=== PATIENT | female | born 1990 | race Caucasian/White ===

== ENCOUNTER 2020-01-25 17:45 | Emergency (ER) | payer OTHER, SELFPAY ==
[2020-01-25 17:50] VITALS: BP 125/84; PULSE 84; RESP 18; TEMP 36.6; O2SAT 98
--- NOTE | 2020-01-25 18:42 | ED.URI ---
HPI - URI/Sore Throat General Chief Complaint: Upper Respiratory Infection Stated Complaint: sore throat tired congestion Time Seen by Provider: 01/25/20 18:43 Source: patient Mode of arrival: ambulatory Limitations: no limitations History of Present Illness HPI Narrative: Leah Mahoney is a 29 yo female with no PMH who came with a sour throat and sniffling that started today.No reported fever. Related Data Allergies Allergy/AdvReac Type Severity Reaction Status Date / Time No Known Allergies Allergy Unknown Verified 01/25/20 18:08 Review of Systems Review of Systems: Narrative: CONSTITUTIONAL: Denies fever, chills, sweats. EYES: Denies visual changes, redness, discharge. ENT:has rhinorrhea, congestion, has sore throat, otalgia. CARDIOVASCULAR: Denies chest pain, palpitations, edema. RESPIRATORY: Denies dyspnea, wheezing, cough GASTROINTESTINAL: Denies abdominal pain, nausea, vomiting, diarrhea. GENITOURINARY: Denies dysuria, hematuria, abnormal discharge SKIN: Denies rash or itching. NEUROLOGIC: Denies numbness, or focal weakness. PSYCHIATRIC: Denies anxiety or depression. [facility] Past Medical History Medical History No acute medical problems Family History Family History Other No acute medical problems Social History Social History (Updated 01/25/20 @ 18:47 by Mayra Billings CNP) Smoking status: Current every day smoker Alcohol intake: current Comments At time of signature, I agree with nursing past medical, surgical, social and family history. There is no relevant family history pertinent to the presenting complaint. Exam Narrative: Exam Narrative: GENERAL: This is a well-nourished, well-developed patient, in mild distress. HEAD: normocephalic, atraumatic. EYES: Sclera clear/white. Vision is grossly intact. EARS: External ears normal, auditory canals clear and without drainage, TMs normal without perforation. Fluid behind right TM hearing grossly intact. NOSE: External nose normal without nasal discharge, nares without redness, no rhinorrhea. THROAT: Mucous membranes moist, posterior pharynx mild erythema CARDIOVASCULAR: regular rate and rhythm without murmurs, gallops, or rubs. RESPIRATORY: Clear to auscultation. Breath sounds equal bilaterally. No wheezes, rales, or rhonchi. GASTROINTESTINAL: Abdomen soft, non-tender, SKIN: warm, intact with no suspicious lesions or rash, good texture and turgor. NEURO: awake, alert, and oriented to person, place and time. There were no obvious focal neurologic abnormalities. Steady gait EXTREMITIES: Normal range of motion. BACK: Nontender without deformity Course Course Emergency Course: Came to express care for sore throat and congestion Strep test is positive flu test is negative started on penicillin V 500 mg twice daily x10 days Vital Signs Vital signs: Vital Signs Temperature 97.8 F 01/25/20 17:50 Pulse Rate 84 01/25/20 17:50 Respiratory Rate 18 01/25/20 17:50 Blood Pressure 125/84 01/25/20 17:50 Pulse Oximetry 98 01/25/20 17:50 Temperature 97.8 F 01/25/20 17:50 Pulse Rate 84 01/25/20 17:50 Respiratory Rate 18 01/25/20 17:50 Blood Pressure 125/84 01/25/20 17:50 Pulse Oximetry 98 01/25/20 17:50 MDM - URI/Sore Throat Differential Diagnosis Differential diagnosis: Likely upper respiratory infection, pharyngitis and other Lab Data Labs: Influenza A Screen Negative Reference Range: Negative Influenza A Screen Negative Reference Range: Negative Influenza B Screen Negative Reference Range: Negative Influenza B Screen Negative Reference Range: Negative Str
== END 2020-01-25 19:02 | disposition home or self-care (01) ==
PROVIDERS: Emergency Provider Nurse Practitioner; PCP Nurse Practitioner Family
DX: J02.0 Streptococcal pharyngitis (principal); F17.200 Nicotine dependence, unspecified, uncomplicated
CPT/HCPCS: 87804; 87880; 99213; G0463

== ENCOUNTER 2020-09-07 09:51 | Emergency (ER) | payer OTHER, SELFPAY ==
[2020-09-07 09:56] VITALS: BP 126/89; PULSE 90; RESP 16; TEMP 36.6; O2SAT 99
--- NOTE | 2020-09-07 10:29 | ED.FEMALEGU ---
HPI - Female Genitourinary General Chief complaint: Urogenital-Female Stated complaint: right side pain slight fever Time Seen by Provider: 09/07/20 10:29 Source: patient and RN notes reviewed Mode of arrival: ambulatory Limitations: no limitations History of Present Illness HPI Narrative: 30-year-old female who presents to [facility] with complaints of 3-day duration of right flank pain which radiates to the right lower abdomen for the past 3 days. Patient reports some frequency of urination denies any burning with urination or any suprapubic pain or any visible hematuria. Patient denies any fevers, chills or sweats, reports some nausea, reports no vomiting or diarrhea. Patient states that she has been taking Tylenol for her discomfort. Reports history of pyelonephritis 3 years ago requiring hospital admission. Patient denies any vaginal discharge or itching denies any concern for STD exposure. MD elicited complaint: flank pain (Right) Pertinent past history: pyelonephritis Onset (ago): day(s) (3) Location of symptoms: flank (right) Severity: moderate Female Urogenital Radiation: LRQ and R Flank Severity scale (1-10): 5 Quality of pain: aching Consistency: constant Vaginal discharge: none Vaginal bleeding: none Urinary symptoms: Frequency Associated symptoms: nausea Treatment prior to arrival: acetaminophen Sexual activity: Yes Patient : No Date of Last Menstrual Period: 08/05/20 Related Data Allergies Allergy/AdvReac Type Severity Reaction Status Date / Time No Known Allergies Allergy Unknown Verified 09/07/20 10:05 Review of Systems Review of Systems: Narrative: CONSTITUTIONAL: Denies fever, chills, or sweats. EYES: Denies visual changes, redness, or discharge. ENT: Denies rhinorrhea, congestion, sore throat, or otalgia. CARDIOVASCULAR: Denies chest pain, palpitations, or edema. RESPIRATORY: Denies cough or dyspnea. GASTROINTESTINAL:Positive for right flank pain radiating to right abdomen, nausea, no vomiting, or diarrhea. GENITOURINARY: Denies dysuria or hematuria reports urinary frequency. SKIN: Denies rash or itching. MUSCULOSKELETAL:Positive right flank area back pain,no joint pain, or myalgia. NEUROLOGIC: Denies headache, numbness, or weakness. PSYCHIATRIC: Positive history of anxiety or depression. All systems reviewed & are unremarkable except as noted in HPI and below PMFSH Past Medical History Medical History (Updated 09/08/20 @ 11:36 by Rabia Ulloa NP) Anxiety Fracture of left hand Pyelonephritis Surgical History Surgical History (Updated 09/08/20 @ 11:31 by Rabia Ulloa NP) No history of previous surgery Family History Family History (Updated 09/07/20 @ 10:42 by Rabia Ulloa NP) Grandparent Cerebrovascular accident Social History Social History (Updated 09/07/20 @ 10:42 by Rabia Ulloa NP) Smoking status: Current some day smoker Tobacco type: e-cigarettes/vaping Alcohol intake: current Substance use: never Living arrangements: with family Gender identity (if verbalized by the patient): Female Comments At time of signature, agree with nursing past medical, surgical, social and family history. There is no relevant family history pertinent to the presenting complaint Exam Narrative: Exam Narrative: GENERAL: Well-appearing, well-nourished, and in no acute distress. HEAD: Normocephalic, atraumatic. EYES: PERRLA and EOMI. ENT: Nares clear, no rhinorrhea or epistaxis. Mucous membranes moist. TM's normal with good light reflex,throat pink with no lesions or exudates no tonsil enlargement NECK: Supple.no lymphadenopathy CHEST: Clear to auscultation. No respiratory distress.SAO2 99% on room air HEART: Regular rate and rhythm. No murmur heard. Normal peripheral pulses. ABDOMEN: Soft, tender right abdomen negative McBurney point tenderness, nondistended, normal active bowel sounds. some nausea with no emesis or diarrhea EXTREMITIES: Normal range of motion. N
== END 2020-09-07 10:50 | disposition home or self-care (01) ==
PROVIDERS: Emergency Provider Registered Nurse; PCP Nurse Practitioner Family
DX: N39.0 Urinary tract infection, site not specified (principal); F17.200 Nicotine dependence, unspecified, uncomplicated
CPT/HCPCS: 81003; 87077; 87086; 87088; 87186; 99213; G0463

== ENCOUNTER 2022-07-20 17:10 | Emergency (ER) | payer OTHER, SELFPAY ==
--- NOTE | 2022-07-20 17:12 | ED.URI ---
HPI - URI/Sore Throat General Chief Complaint: Upper Respiratory Infection Stated Complaint: voice / cough Time Seen by Provider: 07/20/22 17:58 Source: patient and RN notes reviewed Mode of arrival: ambulatory Limitations: no limitations History of Present Illness HPI Narrative: 32-year-old female presents with concern for hoarse voice. She reports mild cough. Denies sore throat, nasal congestion, rhinorrhea, shortness of breath. She denies fever, aches, chills, sweats. She works as a judicial administrative assistant. MD elicited complaint: cough and other (hoarse voice) Related Data Allergies Allergy/AdvReac Type Severity Reaction Status Date / Time No Known Allergies Allergy Unknown Verified 07/20/22 17:19 Review of Systems Review of Systems: CONSTITUTIONAL: Denies malaise, chills, sweats, or fever. EYES: Denies visual changes, redness, or discharge. ENT: Reports rhinorrhea, congestion, sinus pain, otalgia and sore throat. Reports hoarse voice CARDIOVASCULAR: Denies chest pain, palpitations, or edema. RESPIRATORY: Reports occasional cough. Denies dyspnea. GASTROINTESTINAL: Denies abdominal pain, nausea, vomiting, diarrhea SKIN: Denies rash or itching. MUSCULOSKELETAL: Denies myalgia. NEUROLOGIC: Denies headache. All systems reviewed & are unremarkable except as noted in HPI and below PMFSH Past Medical History Medical History (Updated 07/20/22 @ 18:16 by Divya Green NP) Anxiety Fracture of left hand Pyelonephritis Surgical History Surgical History (Updated 09/08/20 @ 11:31 by Rabia Ulloa NP) No history of previous surgery Family History Family History (Updated 09/07/20 @ 10:42 by Rabia Ulloa NP) Grandparent Cerebrovascular accident Social History Social History (Updated 09/07/20 @ 10:42 by Rabia Ulloa NP) Smoking status: Current some day smoker Tobacco type: e-cigarettes/vaping Alcohol intake: current Substance use: never Living arrangements: with family Gender identity (if verbalized by the patient): Female Comments At time of signature, agree with nursing past medical, surgical, social and family history. There is no relevant family history pertinent to the presenting complaint Exam Narrative: GENERAL: Well-appearing, well-nourished, and in no acute distress. HEAD: Normocephalic EYES: PERRLA, conjunctivae clear ENT: Nares clear. Mucous membranes moist. TM pearly chase with sharp light reflex bilaterally; no tragal tenderness. Oropharynx not erythematous without lesions. Tonsils not enlarged and without exudate, no drooling, no trismus, uvula midline. hoarse voice noted NECK: Supple. No lymphadenopathy CHEST: Clear to auscultation, breath sounds equal. No wheezing, rhonchi, rales, or stridor. No respiratory distress, speaks in full sentences. HEART: Regular rate and rhythm. No murmur heard. SKIN: Warm, dry, no rash. NEURO: Alert and oriented x3. PSYCH: Normal mood and affect Course Course Emergency Course: Patient is aware of diagnosis, understands and agrees to treatment plan. Anticipatory guidance given. Patient agrees to follow-up as directed and is aware of reasons to seek care at the emergency department. Portions of this record may have been created with voice recognition software Level of Care: Express Care Visit Vital Signs Vital signs: Reviewed. MDM - URI/Sore Throat MDM Narrative Medical decision making narrative: Differential diagnosis considered: [place] virus, strep pharyngitis, allergic rhinitis, upper respiratory tract infection, sinusitis, rhinosinusitis, nasopharyngitis. viral pharyngitis, otitis media, otitis externa, pneumonia, bronchitis, viral cough syndrome, viral syndrome, and influenza. Exam findings show no acute concerns or changes; patient is non-toxic appearing and is in no distress. Patient is appropriate for outpatient treatment and follow-up. Lab Data Attestation: I reviewed the patient's lab results. Critical Care Time Critic
[2022-07-20 17:15] VITALS: BP 131/79; PULSE 79; RESP 18; TEMP 36.6; O2SAT 98
== END 2022-07-20 18:28 | disposition home or self-care (01) ==
PROVIDERS: Emergency Provider Nurse Practitioner
DX: J02.0 Streptococcal pharyngitis (principal)
CPT/HCPCS: 87880; 99213; G0463

== ENCOUNTER 2022-08-17 09:21 | Emergency (ER) | payer OTHER, SELFPAY ==
[2022-08-17 09:25] VITALS: BP 137/94; PULSE 74; RESP 20; TEMP 36.8; O2SAT 100
--- NOTE | 2022-08-17 09:31 | ED.URI ---
HPI - URI/Sore Throat General Chief Complaint: Upper Respiratory Infection Stated Complaint: sore throat Time Seen by Provider: 08/17/22 09:31 Source: patient Mode of arrival: ambulatory Limitations: no limitations History of Present Illness HPI Narrative: 32-year-old female presents with complaint of sore throat, fatigue, fever for 3 days. Afebrile at [facility]. Denies nausea vomiting diarrhea. Patient last diagnosed with strep throat July 20. All systems reviewed and negative except as noted above. Related Data Allergies Allergy/AdvReac Type Severity Reaction Status Date / Time No Known Allergies Allergy Unknown Verified 08/17/22 09:38 Review of Systems Review of Systems: CONSTITUTIONAL: Denies fever and fatigue. Denies chills, or sweats. EYES: Denies visual changes, redness, or discharge. ENT: Denies rhinorrhea, congestion, or otalgia. Reports sore throat fluid CARDIOVASCULAR: Denies chest pain, palpitations, or edema. RESPIRATORY: Denies cough or dyspnea. GASTROINTESTINAL: Denies abdominal pain, nausea, vomiting, or diarrhea. GENITOURINARY: Denies dysuria or hematuria. SKIN: Denies rash or itching. MUSCULOSKELETAL: Denies back pain, joint pain, or myalgia. NEUROLOGIC: Denies headache, numbness, or weakness. PSYCHIATRIC: Denies anxiety or depression. All other systems reviewed are negative, except as documented in HPI. PMFSH Past Medical History Medical History (Updated 08/17/22 @ 09:44 by Brook Grey NP) Anxiety Fracture of left hand Pyelonephritis Surgical History Surgical History (Updated 09/08/20 @ 11:31 by Rabia Ulloa NP) No history of previous surgery Family History Family History (Updated 09/07/20 @ 10:42 by Rabia Ulloa NP) Grandparent Cerebrovascular accident Social History Social History (Updated 09/07/20 @ 10:42 by Rabia Ulloa NP) Smoking status: Current some day smoker Tobacco type: e-cigarettes/vaping Alcohol intake: current Substance use: never Living arrangements: with family Gender identity (if verbalized by the patient): Female Comments At time of signature, agree with nursing past medical, surgical, social and family history. There is no relevant family history pertinent to the presenting complaint. Exam Narrative: GENERAL: This is a well-nourished, well-developed patient, in no apparent distress. HEAD: normocephalic, atraumatic. EYES: PERRL. Sclera clear/white. Vision is grossly intact. EARS: External ears normal, auditory canals clear and without drainage, TMs normal without perforation. Hearing grossly intact. NOSE: External nose normal with no obvious nasal discharge, nares without redness, no rhinorrhea. THROAT: Mucous membranes moist, erythema posterior pharynx, tonsils 1+ bilaterally without exudates. NECK: tender bilaterally anterior cervical lymphadenopathy. No masses or thyromegaly. CARDIOVASCULAR: Regular rate and rhythm without murmurs, gallops, or rubs. RESPIRATORY: Clear to auscultation. Breath sounds equal bilaterally. No wheezes, rales, or rhonchi. SKIN: warm, Dry, intact with no suspicious lesions or rash, good texture and turgor. NEURO: awake, alert, and oriented to person, place and time. There were no obvious focal neurologic abnormalities. EXTREMITIES: No joint tenderness, effusion, or edema noted. Course Course Level of Care: Express Care Visit Vital Signs Vital signs: Vital Signs Temperature 36.8 C 08/17/22 09:25 Pulse Rate 74 08/17/22 09:25 Respiratory Rate 20 08/17/22 09:25 Blood Pressure 137/94 H 08/17/22 09:25 Pulse Oximetry 100 08/17/22 09:25 Oxygen Delivery Room Air 08/17/22 09:25 Temperature 36.8 C 08/17/22 09:25 Pulse Rate 74 08/17/22 09:25 Respiratory Rate 20 08/17/22 09:25 Blood Pressure 137/94 H 08/17/22 09:25 Pulse Oximetry 100 08/17/22 09:25 Oxygen Delivery Room Air 08/17/22 09:25 Reviewed MDM - URI/Sore Throat MDM Narrat
== END 2022-08-17 09:45 | disposition home or self-care (01) ==
PROVIDERS: Emergency Provider Nurse Practitioner Family
DX: J02.0 Streptococcal pharyngitis (principal); F17.290 Nicotine dependence, other tobacco product, uncomplicated
CPT/HCPCS: 87880; 99213; G0463

== ENCOUNTER 2023-04-14 13:28 | Emergency (ER) | payer SELFPAY ==
[2023-04-14 13:41] VITALS: BP 101/64; PULSE 96; RESP 16; TEMP 37.7; O2SAT 100
--- NOTE | 2023-04-14 14:01 | ED.GENADULT ---
HPI - General Adult General Chief complaint: Unspecified Stated complaint: feet/fingertips numb Time Seen by Provider: 04/14/23 14:01 Source: patient Mode of arrival: ambulatory Limitations: no limitations History of Present Illness HPI narrative: 32 yo F presents with c/o numbness/tingling to bilateral hands, feet and around ABD for 5 days. Was seen at [facility] and [facility] and states they didn't really help me or tell me what to do . Pt did test positive for flu B and states thats not what is causing this . Pt is pale and tearful. C/o really bad back pain to mid and low back. Denies injury. No urinary symptoms. having normal BMs. Pt walking off balance and bracing wall when she walks. Denies headache and dizziness. Drove herself to express care. Was seen by chiropractor yesterday. States popped necK but didn't help . pt unable to see PCP until April. All systems reviewed and negative except as noted above. Related Data Allergies Allergy/AdvReac Type Severity Reaction Status Date / Time No Known Allergies Allergy Unknown Verified 08/17/22 09:38 Review of Systems Review of Systems: CONSTITUTIONAL: Denies fever, chills, or sweats. EYES: Denies visual changes, redness, or discharge. ENT: Denies rhinorrhea, congestion, sore throat, or otalgia. CARDIOVASCULAR: Denies chest pain, palpitations, or edema. RESPIRATORY: Denies cough or dyspnea. GASTROINTESTINAL: Denies abdominal pain, nausea, vomiting, or diarrhea. GENITOURINARY: Denies dysuria or hematuria. SKIN: Denies rash or itching. MUSCULOSKELETAL: Denies back pain, joint pain, or myalgia. NEUROLOGIC: Denies headache. Reports numbness and tingling to bilateral hands, feet and around abdomen. Denies weakness. PSYCHIATRIC: Denies anxiety or depression. All other systems reviewed are negative, except as documented in HPI. [facility] Past Medical History Medical History (Updated 04/14/23 @ 14:42 by Brook Grey NP) Anxiety Fracture of left hand Pyelonephritis Surgical History Surgical History (Updated 09/08/20 @ 11:31 by Rabia Ulloa NP) No history of previous surgery Family History Family History (Updated 09/07/20 @ 10:42 by Rabia Ulloa NP) Grandparent Cerebrovascular accident Social History Social History (Updated 09/07/20 @ 10:42 by Rabia Ulloa NP) Smoking status: Current some day smoker Tobacco type: e-cigarettes/vaping Alcohol intake: current Substance use: never Living arrangements: with family Gender identity (if verbalized by the patient): Female Comments At time of signature, agree with nursing past medical, surgical, social and family history. There is no relevant family history pertinent to the presenting complaint. Exam Narrative: GENERAL: Patient is pale, in mild pain distress and tearful. HEAD: normocephalic, atraumatic. EYES: PERRL. Sclera clear/white. Vision is grossly intact. EARS: External ears normal, auditory canals clear and without drainage, TMs normal without perforation. Hearing grossly intact. NOSE: External nose normal with no obvious nasal discharge, nares without redness, no rhinorrhea. THROAT: Mucous membranes moist, posterior pharynx clear. NECK: Neck supple, non-tender without lymphadenopathy, masses or thyromegaly. CARDIOVASCULAR: Regular rate and rhythm without murmurs, gallops, or rubs. RESPIRATORY: Clear to auscultation. Breath sounds equal bilaterally. No wheezes, rales, or rhonchi. SKIN: warm, Dry, intact with no suspicious lesions or rash, good texture and turgor. NEURO: awake, alert, and oriented to person, place and time. There were no obvious focal neurologic abnormalities. EXTREMITIES: No joint tenderness, effusion, or edema noted. Upper and lower bilateral extremity strength 5/5. BACK: Generalized tenderness to thoracic and lumbar aspects with no midline tenderness. No deformity noted. Course Course Level of Care: Express Care Visit Vital Signs
--- NOTE | 2023-04-14 15:10 | PC.NURSE ---
NO UC ORDERED PER PROVIDER
== END 2023-04-14 14:41 | disposition short-term general hospital (02) ==
PROVIDERS: Emergency Provider Nurse Practitioner Family; PCP Nurse Practitioner Family
DX: R20.2 Paresthesia of skin (principal); M54.6 Pain in thoracic spine; M54.50 Low back pain, unspecified; F17.290 Nicotine dependence, other tobacco product, uncomplicated
CPT/HCPCS: 81003; 99212; G0463

== ENCOUNTER 2023-04-17 12:52 | Emergency (ER) | payer SELFPAY ==
--- NOTE | ~2023-04-17 | CT_ITS ---
EXAMINATION: CT thoracic lumbar wo con DATE: 04/17/2023 17:43 INDICATION: upper back pain, paresthesias . TECHNIQUE: Computed tomography (CT) of the thoracic and lumbar spine was performed without intravenou s contrast. The dose-length product was 1292.15 mGy-cm. COMPARISON: None FINDINGS: THORACIC SPINE: Vertebral body alignment intact. Mild spinal asymmetry. Vertebral body heights preserved. No disc spa ce narrowing. No traumatic malalignment or fracture. No severe central canal or neural foraminal narr owing. Visualized lung parenchyma is clear. 6 mm right thyroid lobe hypodensity which requires no add itional evaluation at this time. Cluster of multiple centrilobular and groundglass nodules measuring up to 6 mm in the right upper lobe. LUMBAR SPINE: 5 nonrib-bearing lumbar-type vertebral bodies. Pedicles intact. Normal vertebral body alignment. Top Collar Baster brody bilateral pars defects at L4. Small limbus vertebra at L5. Mild degenerative disc disease at L3-4 through L5-S1. 2 mm disc extrusion at L4-5. Disc spaces maintained. Normal facets and posterior habematolel ents. No severe central canal or neural foraminal narrowing. Partially visualized IUD. Punctate nonob structing bilateral renal calcifications. Right renal scarring. IMPRESSION: Likely infectious/inflammatory cluster of pulmonary nodules in the right upper lobe. Correlate with r espiratory symptoms. Consider radiographic follow-up to ensure resolution. No acute fracture or trauma malalignment detected in the thoracic or lumbar spine. Reviewed, dictated and finalized at location [facility] IMPRESSION: Likely infectious/inflammatory cluster of pulmonary nodules in the right upper lobe. Correlate with respiratory symptoms. Consider radiographic follow-up to e nsure resolution. No acute fracture or trauma malalignment detected in the thoracic or lumbar spi ne.
[2023-04-17 13:21] VITALS: BP 119/82; PULSE 90; RESP 16; TEMP 36.4; O2SAT 100
--- NOTE | 2023-04-17 15:48 | ED.GENADULT ---
HPI - General Adult General Chief complaint: Unspecified <ANITA Roque Last Filed: 04/17/23 16:04> Stated complaint: NUMBNESS ALL OVER BODY FOR PAST WEEK <ANITA Roque Last Filed: 04/17/23 16:04> Time Seen by Provider: 04/17/23 15:48 <ANITA Roque Last Filed: 04/17/23 16:04> Focused HPI: Patient is a 32 y/o female who presents to the ED with c/o paresthesias. Patient reports having paresthesias in her entire body for the past 8 days. States it involves her hands, feet, legs, back, breasts. States she has been going to several different hospitals and no one will tell her what's wrong. Went to 2 separate hospitals in [place], [place] in the past 1 week, was diagnosed with Influenza on Monday. Does admit to having sore throat, cough, congestion at that time but states these sx's have improved. Denies significant weakness of extremities, but does state the paresthesias make walking difficult at times. Denies pain in extremities. Reports pain in her mid to lower back, no recent injury. Denies bowel or bladder incontinence, saddle anesthesia. Denies slurred speech, confusion, vision changes, headache, unilateral weakness. Patient is scheduled to see a new primary care doctor next month. GENERAL: Well-appearing, well-nourished, and in no acute distress. HEAD: Normocephalic, atraumatic. CHEST: Clear to auscultation. ?No respiratory distress. HEART: Regular rate and rhythm.? MSK: Mild tenderness to palpation throughout midthoracic region, between the scapula. No palpable deformities or bony step-offs. No appreciable lumbar spinal tenderness. NEURO: ?Alert and oriented x3. No focal deficits. Sensation intact in extremities. Capillary refill in to extremities. Equal malt liquors sales representative strength bilaterally. No pronator drift. Ambulatory with steady gait. PSYCHIATRIC: Anxious, tearful. Patient screened in triage and initial orders placed.? ?Additional care and disposition to be based upon?diagnostic testing and treatment. <ANIAT Roque Last Filed: 04/17/23 16:04> Source: patient <ANITA Roque Last Filed: 04/17/23 16:04> Mode of arrival: ambulatory <ANITA Roque Last Filed: 04/17/23 16:04> Limitations: no limitations <ANITA Roque Last Filed: 04/17/23 16:04> Related Data Allergies/adverse reactions: Allergies Allergy/AdvReac Type Severity Reaction Status Date / Time No Known Allergies Allergy Unknown Verified 08/17/22 09:38 <ANITA Roque Last Filed: 04/17/23 16:04> Review of Systems Review of Systems: All systems as dictated in HPI <ANITA Garland Last Filed: 04/18/23 01:19> PMFSH Past Medical History Medical History: Medical History (Updated 04/18/23 @ 00:00 by Melissa Robin) Anxiety Fracture of left hand Pyelonephritis <ANITA Roque Last Filed: 04/17/23 16:04> Surgical History Surgical History: Surgical History (Updated 09/08/20 @ 11:31 by Raiba Ulloa NP) No history of previous surgery <ANITA Roque Last Filed: 04/17/23 16:04> Family History Family History: Family History (Updated 09/07/20 @ 10:42 by Rabia Ulloa NP) Grandparent Cerebrovascular accident <ANITA Roque Last Filed: 04/17/23 16:04> Social History Social History: Social History (Updated 09/07/20 @ 10:42 by Rabia Ulloa NP) Smoking status: Current some day smoker Tobacco type: e-cigarettes/vaping Alcohol intake: current Substance use: never Living arrangements: with family Gender identity (if verbalized by the patient): Female <ANITA Roque Last Filed: 04/17/23 16:04> Exam Narrative: GENERAL: Well-appearing, well-nourished, and in no acute distress. HEAD: Normocephalic, atraumatic. EYES: PERRLA and EOMI. ENT: Nares clear, no rhinorrhea or epistaxis. Mucous
[2023-04-17 16:12] LABS: Basophils Percent Auto 0.2 % (0.2-1.2); Eosinophils Absolute Auto 0.1 K/mm3 (0-0.3); Eosinophils Percent Auto 1.7 % (0-4.4); Hematocrit 35.8 % (37.0-47.0); Hemoglobin 11.2 g/dL (12.0-15.0); Immature Granulocyte Absolute 0.02 K/mm3 (0.00-0.031); Immature Granulocyte Percent A 0.5 % (0-0.5); Lymphocytes Absolute Auto 1.65 K/mm3 (0.9-3.2); Lymphocytes Percent Auto 40.6 % (18.3-44.2); Mean Corpuscular HGB Conc 31.3 g/dl (32-36); Mean Corpuscular Hemoglobin 29.9 pg (26-34); Mean Corpuscular Volume 95.5 fl (80-100); Mean Platelet Volume 10.2 fl (7.4-10.4); Monocytes Absolute Auto 0.3 K/mm3 (0.1-0.6); Monocytes Percent Auto 6.7 % (2.6-8.5); Neutrophils Percent Auto 50.3 % (45.5-73.1); Platelet Count Result 281 k/mm3 (150-375); Red Blood Count 3.75 M/mm3 (4.2-5.4); Red Cell Distribution Width 16.3 % (11.5-14.5); White Blood Count 4.1 K/mm3 (4.5-10.0)
[2023-04-17 16:22] LABS: Alanine Aminotransferase 32 U/L (6-35); Albumin Level 4.3 g/dL (3.5-5.1); Alkaline Phosphatase 67 U/L (38-126); Anion Gap 7 mmol/L (8-16); Aspartate Amino Transferase 43 U/L (14-36); Bilirubin,Total 0.5 mg/dL (0.2-1.3); Blood Urea Nitrogen 14 mg/dL (7-17); Calcium 9.2 mg/dL (8.4-10.2); Carbon Dioxide 27 mmol/L (22-30); Chloride 105 mmol/L (98-107); Estimated CRCL calculation 98 ml/min; Estimated Glomerular Filt Rate > 60; Glucose 97 mg/dL (65-110); Magnesium 2.2 mg/dL (1.6-2.3); Potassium 4.1 mmol/L (3.4-5.0); Sodium 139 mmol/L (137-145)
[2023-04-17 18:30] VITALS: BP 120/75; PULSE 83; RESP 16; O2SAT 100
== END 2023-04-17 18:39 | disposition home or self-care (01) ==
PROVIDERS: Physician Assistant; Emergency Provider Physician Assistant; PCP Nurse Practitioner Family
DX: R20.2 Paresthesia of skin (principal); F17.290 Nicotine dependence, other tobacco product, uncomplicated; R91.8 Other nonspecific abnormal finding of lung field
CPT/HCPCS: 36415; 72128; 72131; 80053; 81025; 83735; 85025; 99284

== ENCOUNTER 2023-09-08 12:43 | Emergency (ER) | payer OTHER, SELFPAY ==
[2023-09-08 12:47] VITALS: BP 139/91; PULSE 100; RESP 20; TEMP 36.1; O2SAT 100
--- NOTE | 2023-09-08 13:27 | ED.GENADULT ---
HPI - General Adult General Chief complaint: Abdominal Pain Stated complaint: cramping Time Seen by Provider: 09/08/23 13:27 Source: patient, RN notes reviewed and old records reviewed Mode of arrival: ambulatory Limitations: no limitations History of Present Illness HPI narrative: 33-year-old female to [facility] for complaint of urinary frequency, lower abdominal discomfort and blood in urine for approximately 3 weeks. Patient reports that last menstrual period was 1 and half to 2 weeks ago. Patient denies nausea, vomiting, bowel changes, fever, urinary incontinence, dysuria, allergies, pertinent medical history. Patient able to tolerate fluids by mouth. Respirations even and nonlabored. Patient in no acute distress. Related Data Allergies Allergy/AdvReac Type Severity Reaction Status Date / Time No Known Allergies Allergy Unknown Verified 09/08/23 14:13 Review of Systems Review of Systems: All systems reviewed & are unremarkable except as noted in HPI and below Constitutional: Constitutional: Reports no additional constitutional complaints Eyes: Eyes: Reports no additional eye complaints ENT: Reports system reviewed and no additional complaints, except as documented Cardiovascular: Cardiovascular: Reports no additional cardiovascular complaints, Denies chest pain and Denies dyspnea Respiratory: Respiratory: Reports no additional respiratory complaints, Denies cough and Denies dyspnea Musculoskeletal: Musculoskeletal: Reports no additional musculoskeletal complaints Neurologic: Reports system reviewed and no additional complaints, except as documented Psychiatric: Psychiatric: Reports no additional psychiatric complaints PMF Past Medical History Medical History (Updated 09/09/23 @ 18:37 by Radha Skelton APRN) Anxiety Fracture of left hand Pyelonephritis Surgical History Surgical History (Updated 09/08/20 @ 11:31 by Rabia Ulloa NP) No history of previous surgery Family History Family History (Updated 09/07/20 @ 10:42 by Rabia Ulloa NP) Grandparent Cerebrovascular accident Social History Social History (Updated 09/07/20 @ 10:42 by Rabia Ulloa NP) Smoking status: Current some day smoker Tobacco type: e-cigarettes/vaping Alcohol intake: current Substance use: never Living arrangements: with family Gender identity (if verbalized by the patient): Female Comments At the time of my signature, I reviewed and agree with the nursing past medical, surgical, social, and family history. There is no relevant family history pertinent to the patient complaint. Exam Const: General: cooperative, healthy appearing, comfortable, no acute distress, alert and well nourished Nutritional Appearance: well nourished Orientation/consciousness: patient oriented x3 Limitations: no limitations HENMT: Head: normal to inspection Ears: external ears normal Face/Nose/Sinus: Normal external nose present, Normal nares present, normal facial exam, No erythema and No edema Face and sinus: normal facial exam, no erythema and no edema Mouth: Yes Normal oral and palatal mucosa present Eyes: General: appearance normal, both eyes and all related structures Neck: Neck: normal visual inspection, full ROM and no meningeal signs Lymphatic: no lymphadenopathy noted and no lymphedema noted Chest: Chest palpation & inspection: normal inspection of the chest Resp: Effort & Inspection: normal respiratory effort and able to speak in complete sentences Auscultation: clear to auscultation bilaterally Cardio: Jugular venous distension: no JVD Rate: regular rate Rhythm: regular rhythm Back/Spine/Pelvis: Cervical Spine: cervical ROM normal Skin: General skin exam: normal color, no rashes or lesions noted and turgor normal Neuro: General: patient oriented x3, gait normal, moves all extremities and no meningeal signs Speech: normal speech Gait exam (Neuro): Normal gait present Extrem:
[2023-09-08 13:53] LABS: EDUAAPPEAR Clear; EDUABILI Negative; EDUABLOOD Trace; EDUACOLOR1 Yellow; EDUAGLUCOSE Negative; EDUAKETONE Negative; EDUALEUKO Trace; EDUANITRATE Negative; EDUAPROTEIN Negative; EDUASPGRAVITY 1.025; EDUAUROBILI 0.2
--- NOTE | 2023-09-08 14:32 | PC.NURSE ---
upon dc stated and requested sti testing. has had unprotected sex. telecommunications consultant aware and will do testing. pt aware of pt portal and will be called with any +results.
[2023-09-08 20:01] LABS: Trichomonas Vag PCR NOT DETECTED (NOT DETECTE)
[2023-09-08 20:25] LABS: Chlamydia trachomatis NOT DETECTED (NOT DETECTE); Neisseria gonorrhoeae PCR NOT DETECTED (NOT DETECTE)
== END 2023-09-08 13:46 | disposition home or self-care (01) ==
PROVIDERS: Emergency Provider Nurse Practitioner Family
DX: N39.0 Urinary tract infection, site not specified (principal); F17.290 Nicotine dependence, other tobacco product, uncomplicated
CPT/HCPCS: 81003; 87086; 87491; 87591; 87661; 99214; G0463

== ENCOUNTER 2024-04-22 18:03 | Emergency (ER) | payer OTHER, SELFPAY ==
[2024-04-22 18:08] VITALS: BP 118/82; PULSE 118; RESP 16; TEMP 37.2; O2SAT 96
--- NOTE | 2024-04-22 18:32 | ED.URI ---
HPI - URI/Sore Throat General Chief Complaint: Upper Respiratory Infection Stated Complaint: throat/nausea/fever History of Present Illness HPI Narrative: 33-year-old female presented for complaint of sore throat, nausea vomiting, fever and headache. Onset yesterday. States she had multiple strep infections Last year. Has not eaten today. Denies abdominal pain, shortness of breath, wheezing. Taking DayQuil. Related Data Home Medications ?Medication ?Instructions ?Recorded ?Confirmed ?Last Taken ?Type escitalopram oxalate 10 mg tablet mg 04/22/24 Unknown History Allergies Allergy/AdvReac Type Severity Reaction Status Date / Time No Known Allergies Allergy Unknown Verified 04/22/24 18:13 Review of Systems Review of Systems: per [facility] Past Medical History Medical History Anxiety Fracture of left hand Pyelonephritis Surgical History Surgical History No history of previous surgery Family History Family History Grandparent Cerebrovascular accident Social History Social History Smoking status: Current some day smoker Tobacco type: e-cigarettes/vaping Alcohol intake: current Substance use: never Living arrangements: with family Gender identity (if verbalized by the patient): Female Exam Narrative: GENERAL: Ill-appearing, no acute distress. EYES: conjunctivae clear ENT: Mucous membranes moist. TM pearly chase with normal light reflex bilaterally; no tragal tenderness. Oropharynx erythematous Tonsils enlarged 2+ with exudate. No drooling, no hoarseness, no trismus, uvula midline. No tripod positioning, hot potato voice, or soft palate swelling. NECK: Supple. No lymphadenopathy CHEST: Clear to auscultation, breath sounds equal. No respiratory distress, speaks in full sentences. HEART: Regular rate and rhythm. No murmur heard. ABD: soft, flat; vomiting in clinic SKIN: Warm, dry, no rash. NEURO: Alert and oriented x3. Course Course Emergency Course: Patient is aware of diagnosis, understands and agrees to treatment plan. Anticipatory guidance given. Patient agrees to follow-up as directed and is aware of reasons to seek care at the emergency department. Portions of this record may have been created with voice recognition software Level of Care: Express Care Visit Vital Signs Vital signs: Vital Signs Temperature 98.1 F 04/22/24 18:04 Pulse Rate 97 04/22/24 18:04 Respiratory Rate 20 04/22/24 18:04 Blood Pressure 133/57 L 04/22/24 18:04 Pulse Oximetry 99 04/22/24 18:04 Oxygen Delivery Room Air 04/22/24 18:04 Temperature 99.0 F 04/22/24 18:08 Pulse Rate 118 H 04/22/24 18:08 Respiratory Rate 16 04/22/24 18:08 Blood Pressure 118/82 04/22/24 18:08 Pulse Oximetry 96 04/22/24 18:08 Oxygen Delivery Room Air 04/22/24 18:08 MDM - URI/Sore Throat MDM Narrative Medical decision making narrative: negative flu, COVID, strep result reviewed with pt. will treat for strep based on CC And PE. Pt says she will be leaving for [place] in 2 days. Advise supportive treatments. Patient is appropriate for outpatient treatment and follow-up. Differential Diagnosis Differential diagnosis: Likely upper respiratory infection, viral infection and pharyngitis Discharge Plan Discharge Clinical Impression: Upper respiratory infection Patient Disposition: Home, Self-Care Condition: Stable Instructions: Antibiotic Form, Strep Throat (ED) Additional Instructions: - Take the antibiotic as directed. Fever and sore throat typically resolve within one to three days. Most patients can return to work after 12 to 24 hours of antibiotic therapy, provided you are fever free and otherwise well. -Eat and drink things that are easy to swallow, like soft foods, cool liquids, tea with honey, or popsicles . -Salt water gargles and/or may use topical anesthetic ( Chloraseptic spray) or lozenges to relieve dryness or throat pain -Alternate Tylenol and ibuprofen as needed for pain and fever as directed. -Frequent hand washing or hand instrument repair specialist is one of the best ways to prevent spread of infection. Throw away the toothbrush after 24hours of antibiotic. -Follow up with primary care provider in 2-3 days if condition is not improving -Go to the ER if you have trouble breathing, cannot drink enough fluids, have muffled voice or drooling, difficulty opening your mouth, or severe swelling. Patient Language: [place] Prescriptions: New amoxicillin 500 mg tablet 1,000 mg PO DAILY 10 Days Qty: 20 0RF ondansetron 4 mg tablet,disintegrating 4 mg PO Q8H PRN (Reason: nausea and vomiting) Qty: 10 0RF No Action escitalopram oxalate 10 mg tablet Follow-up/Referrals: Frantz,Yamilet Honeycutt [Primary Care Provider] - Time of Disposition: 18:44
[2024-04-22 18:43] LABS: EDCOVIDSCREEN Negative (Negative); EDINFLUASCREEN Negative (Negative); EDINFLUBSCREEN Negative (Negative)
[2024-04-22 18:43] LABS: EDSTREPNEGPOS1 Negative (Negative)
== END 2024-04-22 18:47 | disposition home or self-care (01) ==
PROVIDERS: Emergency Provider Nurse Practitioner Family; PCP Nurse Practitioner
DX: J06.9 Acute upper respiratory infection, unspecified (principal); Z20.822 Contact with and (suspected) exposure to COVID-19; F17.290 Nicotine dependence, other tobacco product, uncomplicated
CPT/HCPCS: 87081; 87426; 87804; 87880; 99213; G0463